=== PATIENT | male | born 2000 | race Caucasian/White ===

== ENCOUNTER 2018-06-17 16:58 | Emergency (ER) | payer OTHER, BC ==
[~2018-06-17] VITALS: Ht 177.8 cm; Wt 88.6 kg
[2018-06-17 16:59] VITALS: TEMP 98.4
[2018-06-17 18:21] LABS: BASO % 0.5 % (0.0-2.0); EOS # 0.1 (0.0-0.7); EOS % 1.2 % (0-4.0); GRAN # 6.1 (1.4-6.5); GRAN % 71.7 % (42.2-75.2); HEMATOCRIT 47.2 % (36.0-47.0); HEMOGLOBIN 16.2 g/dl (12.5-16.1); LYMPH # 1.7 (1.2-3.4); LYMPH % 19.7 % (20.0-51.0); MEAN CELL VOLUME 84 fl (80.0-95.0); MEAN CORPUSCULAR HEMOGLOBIN 29 pg (26.0-32.0); MEAN CORPUSCULAR HGB CONC 34 g/dl (33.0-37.0); MEAN PLATELET VOLUME 11.9 fl (7.4-10.4); MONO # 0.6 (0.1-0.6); MONO % 6.5 % (1.7-9.3); PLATELET COUNT 222 K/mm3 (130-400); RED BLOOD COUNT 5.65 M/mm3 (4.20-5.60); REDCELL DISTRIBUTION WIDTH-CV 12.3 % (11.5-14.5)
[2018-06-17 18:26] LABS: PROTHROMBIN TIME 11.3 SECONDS (9.7-12.8)
[2018-06-17 18:28] LABS: ALBUMIN 4.7 gm/dL (3.5-5.0); BILIRUBIN,TOTAL 0.4 mg/dL (0.0-1.0); CREATININE, serum 0.88 mg/dL (0.66-1.25); POTASSIUM 4.1 mmol/L (3.4-5.0); TOTAL PROTEIN 7.8 gm/dL (6.4-8.2)
[2018-06-17 19:40] VITALS: BP 114/63; PULSE 85
== END 2018-06-17 19:45 | disposition short-term general hospital (02) ==
LOC: COL.ER 16:58
PROVIDERS: Family Medicine
DX: S06.360A Traumatic hemorrhage of cerebrum, unspecified, without loss of consciousness, initial encounter (principal); V49.9XXA Car occupant (driver) (passenger) injured in unspecified traffic accident, initial encounter

== ENCOUNTER → 2018-09-13 | Outpatient (CLI) | payer OTHER, BC | LOC: ZCOL.LAB 14:03 | DX: Z01.89 Encounter for other specified special examinations (principal) ==